=== PATIENT | male | born 2000 | race Caucasian/White ===

== ENCOUNTER → 2020-11-29 | Outpatient (CLI) | payer OTHER ==
[2020-11-29 12:06] LABS: Basophils % (A) 1 %; Eosinophils # (A) 0.1 k/uL (0-0.7); Eosinophils % (A) 2 %; HCT 46.2 % (39.0-53.0); HGB 15.7 gm/dL (13.0-17.5); Lymphocytes # (A) 1.4 k/uL (1.0-4.8); Lymphocytes % (A) 29 %; MCH 29.9 pg (25.0-35.0); MCV 87.9 fL (80.0-100.0); Monocytes # (A) 0.3 k/uL (0-1.0); Monocytes % (A) 6 %; Neutrophils # (A) 2.9 k/uL (1.3-7.7); Neutrophils % (A) 62 %; Platelet Count 171 k/uL (150-450); RBC 5.26 m/uL (4.30-5.90); RDW 12.2 % (11.5-15.5); WBC 4.7 k/uL (4.0-11.0)
[2020-11-29 17:49] LABS: Non-African American GFR(CKD) 107.9 (60.0-200.0)
[2020-11-29 18:02] LABS: T4, Free (Free Thyroxine) 1.2 ng/dL (0.83-1.43)
== END | disposition home or self-care (01) ==
LOC: LABMAIN 11:11
PROVIDERS: ATTEND Dermatology
DX: L29.9 Pruritus, unspecified (principal)
CPT/HCPCS: 36415; 82565; 84439; 84443; 84450; 84460; 84520; 85025

== ENCOUNTER → 2024-09-15 | Outpatient (CLI) | payer BC ==
[2024-09-15 23:13] LABS: ALT 18 U/L (10-49); AST 20 U/L (14-35)
== END | disposition home or self-care (01) ==
LOC: LABWHC1 11:22
PROVIDERS: ATTEND Internal Medicine
DX: B35.8 Other dermatophytoses (principal)
CPT/HCPCS: 36415; 84450; 84460

== ENCOUNTER 2025-04-01 11:37 | Emergency (ER) | payer BC ==
[2025-04-01] MEDS: ACETAMINOPHEN TAB 500 MG TAB PO STA (12:15)
--- NOTE | 2025-04-01 13:33 | XR ---
EXAMINATION TYPE: XR knee complete RT DATE OF EXAM: 04/01/2025 12:25 PM COMPARISON: None. CLINICAL INDICATION: Male, 24 years old with history of pain, pain TECHNIQUE: 3 view(s) obtained. FINDINGS: No acute fracture or dislocation evident. Joint spaces are preserved. There may be a small joint effu amanda present. Follow up exams can be performed 7-10 days from acute trauma for continued pain. MRI can be performed for evaluation of the soft tissues. IMPRESSION: 1. No acute osseous abnormality radiographically apparent. 2. Small joint effusion [facility], Workstation: [facility], 04/01/2025 1:31 PM
--- NOTE | 2025-04-01 14:04 | CT ---
EXAMINATION TYPE: CT knee RT wo con CT DLP: 150.4 mGycm, Automated exposure control for dose reduction was used. DATE OF EXAM: 04/01/2025 1:59 PM COMPARISON: Right knee radiograph 04/01/2025 CLINICAL INDICATION:Male, 24 years old with history of right knee twisting injury; PHH, right knee tw isting injury. Pain TECHNIQUE: Axial images were obtained of the right knee without the use of IV contrast. Additional c oronal and sagittal reformatted images and soft tissue and bone window were obtained for review. 3-D reconstruction was created on a separate workstation. FINDINGS: There is no evidence of fracture, subluxation, or dislocation. Benign bone island within th e proximal tibia. No significant soft tissue swelling. Small knee joint effusion. No focal muscular a trophy or edema is identified. No radiopaque foreign body identified. IMPRESSION: 1. No acute fracture or dislocation. Consider further evaluation with MRI if there is continued clin ical concern. 2. Small knee joint effusion. [facility], , 04/01/2025 2:01 PM
[2025-04-01 14:09] VITALS: RESP 18; TEMP 98
--- NOTE | 2025-04-01 14:39 | ED ---
General Adult HPI - General Chief complaint: Extremity Injury, Lower Stated complaint: R knee injury Time Seen by Provider: 04/01/25 12:00 Source: patient, RN notes reviewed, old records reviewed Mode of arrival: ambulatory Limitations: no limitations - History of Present Illness Initial comments: 44-year-old male presents emergency department complaining of right knee pain. Patient states that he was starting the lawn more this morning, stopped and pulled on the string. Suffered some right knee pain with that. States he attempted to treat with icing but did not improve and presents for further evaluation. Took Motrin at home. Denies any sensory deficits. Cannot fully extend or flex the right knee. Denies any other injuries. Presents for further evaluation. No significant past medical history. - Related Data Home Medications Medication Instructions Recorded Confirmed Albuterol Sulfate [Proair 1 puff PO QID PRN 05/10/16 05/10/16 Respiclick] Mometasone/Formoterol [Dulera 100 2 puff INHALATION BID 05/10/16 05/10/16 Mcg/5 Mcg Inhaler] Prednisone(Unknown Dose) 05/10/16 Acetaminophen Tab [Tylenol] 2 tab PO Q8HR PRN 05/12/16 05/12/16 Allergies Allergy/AdvReac Type Severity Reaction Status Date / Time No Known Allergies Allergy Verified 04/01/25 11:47 Review of Systems ROS Statement: Those systems with pertinent positive or pertinent negative responses have been documented in the HPI. Review of Systems: CONST: Denies fever EYES: Denies blurry vision ENT: Denies nasal congestion C/V: Denies Chest pain RESP: Denies shortness of breath GI: Denies abdominal pain : Denies dysuria SKIN: Denies rash. MSK: Endorses right knee pain NEURO: Denies headache ROS Other: All systems not noted in ROS Statement are negative. Past Medical History Past Medical History: Asthma History of Any Multi-Drug Resistant Organisms: None Reported Past Surgical History: No Surgical Hx Reported Past Anesthesia/Blood Transfusion Reactions: No Reported Reaction Past Psychological History: No Psychological Hx Reported Smoking Status: Current every day smoker Past Alcohol Use History: Occasional Past Drug Use History: None Reported - Past Family History Mother Family Medical History: No Reported History General Exam - General Exam Comments Initial Comments: General: Appears in no acute distress. HEAD: Normal with no signs of head trauma. EYES: EOMI. ENT: Hearing grossly intact. RESPIRATORY: No respiratory distress. C/V: Regular rate and rhythm. ABD: Abdomen is nondistended. EXT: No obvious deformity. Decreased range of motion with full flexion and extension of the right lower extremity and right knee. Able to hold right knee in full extension. Neurovasc intact throughout the right lower extremity. Tenderness to palpation over bilateral joint lines. Mild edema. SKIN: No rashes or lesions observed on exposed skin. NEURO: Alert and oriented. Limitations: no limitations Course Vital Signs 04/01/25 04/01/25 11:44 13:00 Temperature 97.9 F 98 F Pulse Rate 78 76 Respiratory 16 18 Rate Blood Pressure 128/83 125/76 O2 Sat by Pulse 99 99 Oximetry Medical Decision Making - Medical Decision Making Was pt. sent in by a medical professional or institution (, PA, [facility], urgent care, hospital, or [facility]...) When possible be specific @ -No Did you speak to anyone other than the patient for history (EMS, parent, family, police, friend...)? What history was obtained from this source @ -No Did you review nursing and triage notes (agree or disagree)? Why? @ -I reviewed and agree with nursing and triage notes Were old charts reviewed (outside hosp., previous admission, EMS record, old EKG, old radiological studies, urgent care reports/EKG's, [facility] records)? Report findings @ -No old charts were reviewed Differential Diagnosis (chest pain, altered mental status, abdominal pain women, abdominal pain men, vaginal bleeding, weakness, fever, dyspnea, syncope, headache, dizziness, GI bleed, back pain, seizure, CVA, palpatations, mental health, musculoskeletal)? @ -Differential Musculoskeletal Muscular strain, contusion, ligament sprain, fracture, arthritis, septic arthritis, bursitis, cellulitis, muscle spasm, nerve compression, DVT, arterial occlusion, herpes zoster, electrolyte abnormality, tumor.... This is not meant to be in all inclusive list EKG interpreted by me (3pts min.). @ -As above X-rays interpreted by me (1pt min.). @ -Right knee x-ray shows a right knee effusion but no obvious fracture CT interpreted by me (1pt min.). @ -CT of the right knee redemonstrates no obvious acute fracture. Right knee joint effusion present. U/S interpreted by me (1pt. min.). @ -None done What testing was considered but not performed or refused? (CT, X-rays, U/S, labs)? Why? @ -None What meds were considered but not given or refused? Why? @ -None Did you discuss the management of the patient with other professionals (professionals i.e. DrChun, PA, [facility], lab, RT, psych nurse, well service floor worker, motor inspection mechanic, teacher, protection officer, case investigator)? Give summary @ -No Was smoking cessation discussed for >3mins.? @ -No Was critical care preformed (if so, how long)? @ -No Were there social determinants of health that impacted care today? How? (Homelessness, low income, unemployed, alcoholism, drug addiction, transportation, low edu. Level, literacy, decrease access to med. care, detention, rehab)? @ -No Was there de-escalation of care discussed even if they declined (Discuss DNR or withdrawal of care, Hospice)? DNR status @ -No What co-morbidities impacted this encounter? (DM, HTN, Smoking, COPD, CAD, Cancer, CVA, ARF, Chemo, Hep., AIDS, mental health diagnosis, sleep apnea, morbid obesity)? @ -None Was patient admitted / discharged? Hospital course, mention meds given and route, prescriptions, significant lab abnormalities, going to OR and other pertinent info. @ -Presents with right knee pain. Somewhat atraumatic injury. Twisting injury. [place] a pop and is still having pain. Vitals within acceptable limits. Recommended x-ray as well as analgesia medications which she accepted. Vitals within acceptable limits. X-ray shows no obvious injury. At this time we did determine that we will obtain a CT as he is unable to bear weight on the right knee. CT was obtained a nd showed no obvious acute fracture. There is a small joint effusion present. I updated the patient at this time. I am concerned for possible soft tissue injury or internal derangement of the right knee. Diagnosis is knee sprain and instructed to use knee immobilizer and crutches and attempt to remain nonweightbearing. He can follow-up with orthopedics on an outpatient basis for further testing. He was in agreement this plan. Given a starter pack of Tylenol 3 for home. I instructed the patient to follow up with their PCP in the next 1-3 days. I explained that the patient should return to the emergency department if they experience any worsening symptoms. Strict return precautions were discussed with the patient. The patient expressed understanding of these instructions. I answered all questions that the patient had. The patient was discharged home in good condition with their prescriptions and follow up information. Undiagnosed new problem with uncertain prognosis? @ -No Drug Therapy requiring intensive monitoring for toxicity (Heparin, Nitro, Insulin, Cardizem)? @ -No Were any procedures done? @ -No Diagnosis/symptom? @ -Right knee sprain Acute, or Chronic, or Acute on Chronic? @ -Acute Uncomplicated (without systemic symptoms) or Complicated (systemic symptoms)? @ -Uncomplicated Side effects of treatment? @ -No Exacerbation, Progression, or Severe Exacerbation? @ -No Poses a threat to life or bodily function? How? (Chest pain, [place], [place], pneumonia, PE, COPD, DKA, ARF, appy, cholecystitis, CVA, Diverticulitis, Homicidal, Suicidal, threat to staff... and all critical care pts) @ -Unlikely at this time Disposition Clinical Impression: Right knee sprain Disposition: HOME SELF-CARE Condition: Good Instructions (If sedation given, give patient instructions): Knee Sprain (ED), Crutch Instructions (ED) Is patient prescribed a controlled substance at d/c from ED?: No Referrals: Royce Shetty MD [Primary Care Provider] - 1-2 days Meg Fong [Doctor of Osteopathic Medicine] - 1-2 days Time of Disposition: 14:38
[2025-04-01] MEDS: ACET/COD 300 MG/30 MG STARTER PACK TAB BTL PO STA (14:52)
[2025-04-01 14:59] VITALS: BP 126/81; PULSE 72
== END 2025-04-01 15:00 | disposition home or self-care (01) ==
LOC: EC 11:37
DX: S83.91XA Sprain of unspecified site of right knee, initial encounter (principal); F17.200 Nicotine dependence, unspecified, uncomplicated; X50.0XXA Overexertion from strenuous movement or load, initial encounter
CPT/HCPCS: 73562; 73700; 99284; L1830